=== PATIENT | male | born 1985 | race Caucasian/White ===

== ENCOUNTER 2023-12-16 22:02 | Emergency (ER) | payer SELFPAY ==
[~2023-12-16] VITALS: Ht 170.2 cm; Wt 99.8 kg
[2023-12-16 23:00] VITALS: BP_SYST 177; PULSE 98; RESP 16; TEMP 98; O2SAT 98
[2023-12-17] MEDS ORDERED: SULF1TAB48 PO (01:37)
[2023-12-17 01:57] VITALS: BP_SYST 160; PULSE 94; RESP 20; TEMP 97.8; O2SAT 97
== END 2023-12-17 01:59 | disposition home or self-care (01) ==
LOC: SED 22:02
DX: L03.311 Cellulitis of abdominal wall (principal); I10 Essential (primary) hypertension; Z79.899 Other long term (current) drug therapy
CPT/HCPCS: 99283